=== PATIENT | female | born 1975 | race Caucasian/White ===

== ENCOUNTER 2020-12-27 13:43 | Emergency (ER) | payer MEDICAID ==
[~2020-12-27] VITALS: Ht 167.6 cm; Wt 68.2 kg
[2020-12-27 13:59] VITALS: BP 148/98
== END 2020-12-27 14:10 | disposition home or self-care (01) ==
LOC: ER 13:44
DX: T63.301A Toxic effect of unspecified spider venom, accidental (unintentional), initial encounter (principal); Y92.89 Other specified places as the place of occurrence of the external cause; F17.210 Nicotine dependence, cigarettes, uncomplicated; Z88.1 Allergy status to other antibiotic agents; Z79.899 Other long term (current) drug therapy
CPT/HCPCS: 99281

== ENCOUNTER 2021-07-21 02:30 | Emergency (ER) | payer MEDICAID ==
[~2021-07-21] VITALS: Ht 167.6 cm; Wt 72.7 kg
[2021-07-21] MEDS ORDERED: AZIT-83 PO (03:54)
[2021-07-21] MEDS ORDERED: diphenhydrAMINE 25mg capsule PO ONE (03:55)
[2021-07-21] MEDS ORDERED: HYDROcodone/acetaminophen 10/325mg tab PO ONE (03:55)
[2021-07-21] MEDS ORDERED: azithromycin 250mg tablet PO ONE (03:55)
[2021-07-21 04:03] VITALS: BP 143/93
== END 2021-07-21 04:05 | disposition home or self-care (01) ==
LOC: ER 02:31
DX: H66.92 Otitis media, unspecified, left ear (principal); Z88.1 Allergy status to other antibiotic agents; Z88.6 Allergy status to analgesic agent
CPT/HCPCS: 99284; Q0163

== ENCOUNTER 2021-07-25 22:23 | Emergency (ER) | payer MEDICAID ==
[~2021-07-25] VITALS: Ht 167.6 cm; Wt 118.2 kg
[~2021-07-25 22:23] MED LIST: AZIT-83 PO
[2021-07-26] MEDS ORDERED: clindamycin 150mg capsule PO ONE (00:35)
[2021-07-26] MEDS ORDERED: CLIN-97 PO (00:37)
[2021-07-26 00:49] VITALS: BP 143/87
== END 2021-07-26 00:51 | disposition home or self-care (01) ==
LOC: ER 22:24
DX: H66.92 Otitis media, unspecified, left ear (principal); Z88.1 Allergy status to other antibiotic agents; Z88.6 Allergy status to analgesic agent
CPT/HCPCS: 99283

== ENCOUNTER 2021-09-05 16:45 | Emergency (ER) | payer MEDICAID ==
[~2021-09-05] VITALS: Ht 167.6 cm; Wt 72.7 kg
[~2021-09-05 16:45] MED LIST changes: -AZIT-83 PO; +CLIN-97 PO
[2021-09-05 16:51] VITALS: BP 153/98
[2021-09-05 17:19] LABS: BASOPHILS % (AUTO) 0.5 % (0-1); EOSINOPHILS # (AUTO) 0.4 X10'3 (0-0.9); EOSINOPHILS % (AUTO) 4.4 % (0-6); HEMATOCRIT 40.7 % (35.0-45.0); HEMOGLOBIN 13.5 g/dl (12.0-16.0); LYMPHOCYTES # (AUTO) 3.2 X10'3 (1.1-4.8); LYMPHOCYTES % (AUTO) 38.9 % (21-51); MEAN CORPUSCULAR HEMOGLOBIN 29.8 PG (27.0-31.0); MEAN CORPUSCULAR HGB CONC 33.3 g/dL (33.0-36.5); MEAN CORPUSCULAR VOLUME 89.7 FL (78-98); MEAN PLATELET VOLUME 8.6 FL (7.4-10.4); MONOCYTES # (AUTO) 0.5 X10'3 (0-0.9); MONOCYTES % (AUTO) 5.6 % (2-12); NEUTROPHILS # (AUTO) 4.1 X10'3 (1.8-7.7); NEUTROPHILS % (AUTO) 50.6 % (42-75); PLATELET COUNT 313 X10'3 (140-440); RED BLOOD COUNT 4.53 X10'6 (4.20-5.60); RED CELL DISTRIBUTION WIDTH 12.9 % (11.5-14.5); WHITE BLOOD COUNT 8.2 X10'3 (4.5-11.0)
[2021-09-05 17:21] LABS: CLARITY,URINE CLEAR (Clear); COLOR,URINE YELLOW (Yellow); GLUCOSE, URINE NEGATIVE (Neg); KETONES,URINE NEGATIVE (Neg); LEUKOCYTE ESTERASE ,URINE NEGATIVE (Neg); NITRITES, URINE NEGATIVE (Neg); OCCULT BLOOD,URINE NEGATIVE (Neg); PROTEIN,URINE NEGATIVE (Neg); UROBILINOGEN,URINE 0.2 E.U/dL (0.2-1.0)
[2021-09-05 17:23] LABS: UA COLLECTION TYPE CLN CATCH MIDSTREAM
[2021-09-05 17:44] LABS: ALANINE AMINOTRANSFERASE 20 U/L (12-78); ALBUMIN 3.6 G/DL (3.4-5.0); ALBUMIN/GLOBULIN RATIO 1.1 (1.1-1.5); ALKALINE PHOSPHATASE 108 IU/L (46-116); ANION GAP 7 (8-16); ASPARTATE AMINO TRANSFERASE 12 U/L (10-37); BILIRUBIN,TOTAL 0.4 MG/DL (0.1-1.0); BLOOD UREA NITROGEN 10 MG/DL (7-18); BUN/CREATININE RATIO 13.5 (6.6-38.0); CALCIUM 8.6 MG/DL (8.5-10.1); CHLORIDE 105 MMOL/L (99-107); CREATININE 0.74 MG/DL (0.40-0.90); GLUCOSE 98 MG/DL (70-104); LIPASE 90 U/L (73-393); POTASSIUM 3.7 MMOL/L (3.5-5.1); SODIUM 139 MMOL/L (135-145); TOTAL CARBON DIOXIDE 27.2 MMOL/L (24-32); eGFR 84 ML/MIN
== END 2021-09-05 20:44 | disposition left against medical advice (07) ==
LOC: ER 16:46
DX: N20.0 Calculus of kidney (principal); Z53.21 Procedure and treatment not carried out due to patient leaving prior to being seen by health care provider; Z79.2 Long term (current) use of antibiotics; Z79.899 Other long term (current) drug therapy
CPT/HCPCS: 36415; 80053; 81003; 83690; 85025

== ENCOUNTER 2023-04-27 10:39 | Emergency (ER) | payer SELFPAY ==
[~2023-04-27] VITALS: Ht 167.6 cm; Wt 70.1 kg
[2023-04-27 11:02] VITALS: TEMP 97.8
[2023-04-27] MEDS ORDERED: diphenhydrAMINE 50 mg/ml inj IM ONE (11:05)
[2023-04-27] MEDS ORDERED: methylPREDNISolone sod succ 125mg/2ml vial IM ONE (11:05)
[2023-04-27 12:16] VITALS: BP 126/92; PULSE 84; RESP 16; O2SAT 98
== END 2023-04-27 12:16 | disposition home or self-care (01) ==
LOC: ER 10:40
DX: T78.1XXA Other adverse food reactions, not elsewhere classified, initial encounter (principal); Z88.1 Allergy status to other antibiotic agents; Z79.2 Long term (current) use of antibiotics; X58.XXXA Exposure to other specified factors, initial encounter
CPT/HCPCS: 96372; 99284; J1200; J2930

== ENCOUNTER 2024-02-07 12:45 | Emergency (ER) | payer OTHER ==
[~2024-02-07] VITALS: Ht 167.6 cm; Wt 69.3 kg
[2024-02-07 13:29] VITALS: BP 145/106; PULSE 102; RESP 18; O2SAT 100
[2024-02-07] MEDS: DEXAMETHASONE 6 MG TABLET PO SCH (13:44)
[2024-02-07] MEDS: famotidine 20mg tablet PO ONE (13:44)
[2024-02-07] MEDS: diphenhydrAMINE 25mg capsule PO ONE (13:44)
== END 2024-02-07 14:15 | disposition left against medical advice (07) ==
LOC: ER 12:45
DX: T78.40XA Allergy, unspecified, initial encounter (principal); R07.89 Other chest pain; Z88.1 Allergy status to other antibiotic agents; Z88.6 Allergy status to analgesic agent; X58.XXXA Exposure to other specified factors, initial encounter
CPT/HCPCS: 99284; Q0163; J8540

== ENCOUNTER 2024-06-22 12:43 | Day surgery (SDC) | payer MEDICAID ==
[2024-06-21 16:01] LABS: BASOPHILS # (AUTO) 0.1 X10'3 (0-0.2); LYMPHOCYTES # (AUTO) 2.5 X10'3 (1.1-4.8); MEAN PLATELET VOLUME 7.7 FL (7.4-10.4); MONOCYTES # (AUTO) 0.5 X10'3 (0-0.9); NEUTROPHILS # (AUTO) 5.8 X10'3 (1.8-7.7)
[2024-06-21 16:04] LABS: BASOPHILS % (AUTO) 0.8 % (0-1); EOSINOPHILS # (AUTO) 0.3 X10'3 (0-0.9); EOSINOPHILS % (AUTO) 2.8 % (0-6); LYMPHOCYTES % (AUTO) 27.2 % (21-51); MEAN CORPUSCULAR HEMOGLOBIN 29.2 PG (27.0-31.0); MEAN CORPUSCULAR VOLUME 85.8 FL (78-98); MONOCYTES % (AUTO) 5.5 % (2-12); NEUTROPHILS % (AUTO) 63.7 % (42-75); PRE OP HEMATOCRIT 27.9 % (35.0-45.0); PRE OP PLATELET COUNT 711 X10'3 (140-440); PRE OP WHITE BLOOD COUNT 9.2 10'3 (4.8-10.8); RED BLOOD COUNT 3.25 X10'6 (4.20-5.60); RED CELL DISTRIBUTION WIDTH 14.2 % (11.5-14.5)
[2024-06-21 16:08] LABS: PRE OP HEMOGLOBIN 9.5 g/dL (12.0-16.0)
[2024-06-21 16:20] LABS: ALBUMIN 2.4 G/DL (3.4-5.0); ALBUMIN/GLOBULIN RATIO 0.5 (1.1-1.5); ALKALINE PHOSPHATASE 110 IU/L (46-116); BLOOD UREA NITROGEN 10 MG/DL (7-18); BUN/CREATININE RATIO 11.4 (10.0-20.0); CALCIUM 8.5 MG/DL (8.5-10.1); CHLORIDE 103 MMOL/L (99-107); CREATININE 0.88 MG/DL (0.40-0.90); PRE OP ALT 16 U/L (30-65); PRE OP ANION GAP 6 (8-16); PRE OP AST 16 U/L (10-37); PRE OP BILIRUB, TOTAL 0.2 MG/DL (0.0-1.0); PRE OP GLUCOSE 119 MG/DL (70-104); PRE OP POTASSIUM 3.7 MMOL/L (3.4-5.1); PRE OP SODIUM 136 MMOL/L (135-145); TOTAL CARBON DIOXIDE 26.6 MMOL/L (24-32); TOTAL PROTEIN 7.2 G/DL (6.4-8.2); eGFR 68 ML/MIN
[2024-06-22] VITALS (11 sets, daily range): BP systolic 134–156; BP diastolic 70–97; PULSE 92–109; RESP 15–22; TEMP 99.1; O2SAT 98–100
[~2024-06-22] VITALS: Ht 167.6 cm; Wt 67.6 kg
[2024-06-22] MEDS: ceFAZolin 2gm in dextrose, iso 50 ML IV ONE (05:30)
[~2024-06-22 12:43] MED LIST changes: +AMOX-580 PO; -CLIN-97 PO; +FLO0.4C PO; +KETO10TA2 PO; +OXYB5TAB21 PO; +PANT40TA54 PO; +PER5325T PO; +[UNRECOGNIZED DRUG - CODE] PO; +iohexol 300 MG/1 ML 50ml polymer ONE
[2024-06-22] MEDS: famotidine 20mg tablet PO ONE (12:59)
[2024-06-22] MEDS: ringers solution, lacted 1,000 ML IV SCH (13:00)
[2024-06-22] MEDS ORDERED: midazolam 1 mg/ML 2ml injection ONE (14:18)
[2024-06-22] MEDS: albuterol 2.5 MG/3 ML nebule NEB ONE (14:19)
[2024-06-22] MEDS ORDERED: fentaNYL/PF 50MCG/1 ML 2ML syringe ONE (14:19)
[2024-06-22] MEDS ORDERED: sevoflurane 250ml liquid IH ONE (14:20)
[2024-06-22] MEDS ORDERED: dexamethasone sod phosphate 4mg/ml inj. ONE (14:51)
[2024-06-22] MEDS ORDERED: meperidine/PF 25mg/ml syringe IV PRN ×3 (15:10)
[2024-06-22] MEDS ORDERED: enalaprilat 1.25mg/ml 2ml vial IV PRN (15:10)
[2024-06-22] MEDS ORDERED: morphine 4 MG/ML inj SYRINge IV PRN (15:10)
[2024-06-22] MEDS ORDERED: proCHLORperazine 10 MG/2 ml inj IV PRN (15:10)
[2024-06-22] MEDS ORDERED: labetalol 20mg/4ml (5mg/ml) syringe IV PRN (15:10)
[2024-06-22] MEDS ORDERED: morphine 2 MG/ML inj. syringe IV PRN (15:10)
[2024-06-22] MEDS ORDERED: ringers solution, lacted 1,000 ML IV SCH (15:10)
[2024-06-22] MEDS: ondansetron/PF 4mg/2ml inj IV PRN (16:56)
== END 2024-06-22 17:40 | disposition home or self-care (01) ==
LOC: PAS 12:43
PROVIDERS: ATTEND Urology
DX: N20.0 Calculus of kidney (principal); Z79.899 Other long term (current) drug therapy; Z98.890 Other specified postprocedural states; Z88.8 Allergy status to other drugs, medicaments and biological substances; Z91.012 Allergy to eggs; K21.9 Gastro-esophageal reflux disease without esophagitis
CPT/HCPCS: 36415; 52356; 74420; 80053; 82948; 85025; 93005; 94640; 94760; J0690; J1100; J2003; J2250; J2405; J2704; J3010; J7120; Q9967; Z7512; 76000

== ENCOUNTER 2024-06-24 18:30 | Emergency (ER) | payer MEDICAID ==
[~2024-06-24] VITALS: Ht 167.6 cm; Wt 68.2 kg
[~2024-06-24 18:30] MED LIST changes: -iohexol 300 MG/1 ML 50ml polymer ONE
[2024-06-24 20:19] LABS: URINE HCG NEGATIVE (NEG)
[2024-06-24 20:25] LABS: BILIRUBIN,URINE NEGATIVE (Neg); CLARITY,URINE CLEAR (Clear); COLOR,URINE YELLOW (Yellow); GLUCOSE, URINE NEGATIVE (Neg); KETONES,URINE NEGATIVE (Neg); LEUKOCYTE ESTERASE ,URINE MODERATE (Neg); NITRITES, URINE NEGATIVE (Neg); OCCULT BLOOD,URINE LARGE (Neg); PH,URINE 7.5 (4.8-8.0); PROTEIN,URINE 100 mg/dl (Neg); UROBILINOGEN,URINE 0.2 E.U/dL (0.2-1.0)
[2024-06-24 20:29] LABS: UA COLLECTION TYPE CLN CATCH MIDSTREAM
[2024-06-24 20:34] LABS: BACTERIA,URINE FEW /HPF (Neg); RBC,URINE 50-100 /HPF (0-2); SQUAMOUS EPITHELIAL CELL,UR NONE SEEN /LPF (FEW); WBC,URINE 50-100 /HPF (0-4)
[2024-06-24] MEDS: ketorolac trometh 15mg/ml vial 15 MG/ML ML IM ONE (22:19)
[2024-06-24 22:22] VITALS: BP 111/76; PULSE 62; RESP 20; TEMP 98.7; O2SAT 100
== END 2024-06-24 22:27 | disposition home or self-care (01) ==
LOC: ER 18:30
DX: R07.81 Pleurodynia (principal); Z88.1 Allergy status to other antibiotic agents; Z88.6 Allergy status to analgesic agent; Z91.012 Allergy to eggs; Z91.018 Allergy to other foods; Z79.899 Other long term (current) drug therapy; Z87.442 Personal history of urinary calculi
CPT/HCPCS: 71045; 81001; 81025; 96372; 99284; J1885

== ENCOUNTER 2025-04-25 10:51 | Emergency (ER) | payer MEDICAID ==
[~2025-04-25] VITALS: Ht 167.6 cm; Wt 68.8 kg
[~2025-04-25 10:51] MED LIST changes: -FLO0.4C PO; +TAMS-55 PO
[2025-04-25 10:57] VITALS: BP 159/102; PULSE 98; RESP 16; O2SAT 100
--- NOTE | 2025-04-25 12:18 | Physician Documentation ---
History of Present Illness ~ Chief Complaint: Ear Pain Stated Complaint: EAR PAIN Time Seen by MD: 11:33 Primary Medical Doctor: [facility] HPI 50-year-old female presents with concerns over increasing ear pain particularly on the left side. States she has a ringing on the left side but denies any drainage. Has a any fever denies any cough cold and congestion as she does have a history ear infection Day of Onset: Apr 25, 2025 Medication Reconciliation Allergies: Coded Allergies: Cephalexin Monohydrate (Unverified Allergy, Unknown, HIVES, 04/25/25) cephalexin (Unverified Allergy, Unknown, HIVES, 04/25/25) chicken derived (Verified Allergy, Unknown, "SOB", 04/25/25) egg (Verified Allergy, Unknown, 04/25/25) ibuprofen (Unverified Adverse Reaction, Unknown, THROW UP, 04/25/25) Scheduled Acetic Acid (Acetic Acid), 4 DROP LEFT EAR Q12H Amox Tr/Potassium Clavulanate 875/125 MG (Augmentin 875/125 MG), 1 TAB PO BID, (Reported) Amoxicillin Trihydrate* (Amoxicillin*), 1 CAP PO Q8H Oxybutynin Chloride (Oxybutynin Chloride), 1 TAB PO TID, (Reported) Tamsulosin Hcl* (Flomax*), 1 CAP PO QAM, (Reported) Scheduled PRN Acetaminophen (Acetaminophen), 2 TAB PO Q6H PRN for pain, (Reported) Ketorolac Tromethamine (Ketorolac Tromethamine), 1 TAB PO TID PRN for pain, (Reported) Oxycodone Hcl/Acetaminophen 5/325 MG* (Percocet 5/325 MG*), 1 TAB PO Q6H PRN for pain, (Reported) Pantoprazole Sodium (Pantoprazole Sodium), 1 TAB PO DAILY PRN for indigestion/dyspepsia, (Reported) Past Medical History Past Medical History: Kidney Stones Past Surgical History: noncontributory Patient History: FH: kidney disease MOTHER Kidney stones Sister Alcohol Use: None Drug Use: none Lives In: Home Review of Systems All Other Systems at this time: Reviewed and Negative ROS As stated above in the HPI, otherwise all systems are reviewed and negative. Physical Exam Vital Signs: Temperature: 98.0, Source: Temporal, Heart Rate: 98, Respiratory Rate: 16, BP: 159/102, Pulse Oximetry: 100, Weight: 68.800 Oxygen Flow Rate: 0 Physical Exam General: Alert, no apparent distress. HEENT: PERRL, EOMI, no injection, moist mucous membranes. Body tympanic membranes was notable erythema in the external auditory canal,no drainage Respiratory: Lungs clear, no respiratory distress. Cardiovascular: Regular rate and rhythm, no murmurs. Extremities: Normal range of motion, no deformity. Neurologic: Oriented x4. Psychiatric: Normal mood and affect. Skin: Normal color, warm and dry. No edema, no ecchymosis. Progress Results/Orders Results/Orders Completed Orders - EDITA GOTTI [employer] Amoxicillin Capsule (Trimox Capsule) (04/25/25 12:20) Medications Received in ER Medications (Trade) Dose Ordered Sig/Adriane Route PRN Reason Start Time Stop Time Status Last Admin Dose Admin (Trimox capsule) 500 mg ONCE ONCE PO 04/25/25 12:20 04/25/25 12:21 DC 04/25/25 12:26 500 MG Vital Signs 04/25/25 04/25/25 10:57 12:29 Temp 98.0 98.0 Pulse 98 Resp 16 B/P (MAP) 159/102 Pulse Ox 100 O2 Flow Rate 0 Medical Decision Making Additional information obtaine: old records Findings Presents with suspected otitis media with additional otitis externa, treat her f or both Ear Diff. Dx: Considerations: Include: Abrasion, Cerumen impaction, Foreign body, Otitis externa, Barotrauma, Otitis media, Perforation, Referred pain- dental, Referred pain-pharyngitis, Referred pain-sinusitis, Referred pain-TMJ syn., Tympanic Membrane Injury, Other Eye Diff. Dx: Considerations: Unlikely: Chalazoin, Conjuctivits-allergic, Conjuctivitis-bacterial, Conjuctivits-chlamydial, Conjuctivitis-viral, Corneal abrasion, Corneal laceration, Corneal ulceration, Foreign body-conjuctiva, Foreign body-corneal, Foreign body-intraocular, Foreign body-lid, Glaucoma, Globe rupture, Hordeolum, Iritis, Orbital cellulitis, Periobital cellulitis, Retinal artery occulsion, Retinal vein occlusion, Rust ring, Subconjunctival hem, Ultraviolet keratitis, Uveitis, Vitreous hemorrhage, Other Nose Diff. Dx: Considerations: Unlikely: Abrasion, Anterior nasal bleed, Avulsion, Contusion, Coagulopathy, Fracture-nasal bone, Fracture-septum, Hypertension, Laceration, Other, Posterior nasal bleed, Retained foreign body, Septal hematoma Tooth Diff. Dx: Considerations: Unlikely: Alveolar fracture, Aveolar osteitis, ANUG, Facial cellulitis, Periapical abscess, Periodontal abscess, Post-extr action bleeding, Pulpitis, Trigeminal neuralgia, Tooth-avulsion, Tooth-eruption, Tooth-fracture, Tooth-subluxation, Other Throat Diff Dx: Considerations: Unlikely: AIDS, Epiglottitis, Esophageal candidiasis, Hand foot mouth disease, Herpangina, Herpetic stomatitis, Herpes simplex, Infection mononucleosis, Immunodeficiency, Brent's angina, Peritonsillar abscess, Peritonsillar cellulitis, Pharyngitis-diphtheria, Pharyngitis-strepococcal, Pharyngitis-viral, Thrush, URI, Other Departure Disposition: HOME / SELF CARE / HOMELESS Impression: Primary Impression: Left otitis media Condition: Improved Discharge Instructions: Otitis Externa, [id number], Otitis Media With Effusion, Adult Referrals: NO PRIMARY CARE PROVIDER (PCP) Prescriptions Amoxicillin Trihydrate* (Amoxicillin*) 500 Mg Capsule 1 CAP PO Q8H for 10 Days, #30 CAP Prov: EDITA GOTTI NP 04/25/25 Acetic Acid (Acetic Acid) 2 % Solution 4 DROP LEFT EAR Q12H for 7 Days, #15 ML 0 Refills Prov: EDITA GOTTI NP 04/25/25 Signature Scribe Signature: eScribed for Edita Gotti Mobile Device Developer by Edita Lazaro NP . 04/25/25 18:39 Attestation: Scribed for Edita Gotti Mobile Device Developer by Edita Lazaro NP . 04/25/25 18:39 EDITA GOTTI NP Apr 25, 2025 12:17
[2025-04-25] MEDS ORDERED: AMOX500C2 PO (12:24)
[2025-04-25] MEDS ORDERED: ACET15SO14 LEFT EAR (12:24)
[2025-04-25 12:29] VITALS: TEMP 98
== END 2025-04-25 12:30 | disposition home or self-care (01) ==
LOC: ER 10:51
DX: H66.92 Otitis media, unspecified, left ear (principal); Z87.442 Personal history of urinary calculi; Z88.1 Allergy status to other antibiotic agents; Z91.0120 Allergy to eggs, unspecified; Z88.6 Allergy status to analgesic agent; Z91.018 Allergy to other foods; Z79.899 Other long term (current) drug therapy
CPT/HCPCS: 99283